=== PATIENT | male | born 1975 | race African-American/Black ===

== ENCOUNTER 2018-08-21 02:24 | Emergency (ER) | payer OTHER ==
[2018-08-21] MEDS ORDERED: KETOROLAC TROMETHAMINE INJ/PF 30 MG/1 ML SDV IV ONE (03:27)
[2018-08-21] MEDS ORDERED: NORMAL SALINE 1000 ML 1,000 ML IV ONE (03:27)
--- NOTE | 2018-08-21 03:32 | ER Document Report ---
ED General - General Chief Complaint: Sickle Cell Crisis Stated Complaint: ARM AND LEG PAIN Time Seen by Provider: 08/21/18 03:20 TRAVEL OUTSIDE OF THE [place] IN LAST 30 DAYS: No - HPI Notes: Patient presents to the emergency department for evaluation of arm and leg pain. He has a history of sickle cell disease. He states he believes that the problem. He was moving furniture, he is moving out of the area. He denies any chest pain or shortness of breath. No fevers or chills. He is taking his medic ations as prescribed. He follows at [place]. Scratch his pain as an aching, it waxes and wanes in intensity. He took some Mobic earlier without any significant relief. Patient also notes he took some Excedrin PM at around 11 PM tonight. - Related Data Allergies/Adverse Reactions: morphine Allergy (Verified 08/21/18 04:22) Home Medications: Folic acid, hydroxyurea, Mobic Past Medical History - General Information source: Patient - Social History Smoking Status: Never Smoker Frequency of alcohol use: None Drug Abuse: None Family History: Other - Brain aneurysms in father - Medical History Medical History: Other - Sickle cell anemia Neurological Medical History: Reports: Other - History of encephalitis Review of Systems - Review of Systems Constitutional: No symptoms reported EENT: No symptoms reported Cardiovascular: No symptoms reported Respiratory: No symptoms reported Gastrointestinal: No symptoms reported Genitourinary: No symptoms reported Musculoskeletal: See HPI Skin: No symptoms reported Neurological/Psychological: No symptoms reported Physical Exam - Vital signs Vitals: Temp Pulse Resp BP Pulse Ox 98.4 F 77 16 152/112 H 97 08/21/18 02:34 08/21/18 02:34 08/21/18 02:34 08/21/18 02:34 08/21/18 02:34 - Notes Notes: This is a pleasant 43-year-old male, appears his stated age, no acute distress. He seems slightly restless, but intermittently drowsy. GCS is 456. Vital signs reviewed, please refer to chart. Head is normocephalic, atraumatic. Pupils equal round, reactive to light. Neck is supple without meningismus. Heart is regular rate and rhythm. Lungs are clear to auscultation bilaterally. Abdomen is soft, nontender, normoactive bowel sounds throughout. Extremities without cyanosis, clubbing. Posterior calves are nontender. Peripheral pulses are equal. Skin is warm and dry. Patient is awake, alert, neurological exam is nonfocal. Examination of the upper extremities yields 2+ radial pulses bilaterally. Sensation is intact, capillary refill is brisk. Mild tenderness noted to the forearms and biceps areas. Full range of motion of the shoulder, elbow, wrist, fingers, thumb. Course - Re-evaluation Re-evalutation: 08/21/18 03:31 Patient presents to the emergency department for evaluation. He had CBC, CMP, reticulocyte count ordered. He did specifically request IV fluids. He was given IV fluids, Toradol. I did explain to the patient my concern about the fact that he drove himself here, did take Tylenol PM several hours ago. We will attempt conservative therapy, continue to follow. 08/21/18 05:29 Patient did ask for stronger pain medicine, but he remained very sleepy. He did not want to wake his to come me his ride. 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 We discussed this. His laboratory investigations are largely unremarkable. He has a normal reticulocyte count. His hemoglobin is only very mildly decreased. We will send him home with 2 Percocet. He is to follow-up with primary care and hematology. He is to return to the ED with worsening or new concerning symptoms of any sort. - Vital Signs Vital signs: Temp Pulse Resp BP Pulse Ox 98.4 F 77 16 152/112 H 97 08/21/18 02:34 08/21/18 02:34 08/21/18 02:34 08/21/18 02:34 08/21/18 02:34 - Laboratory Result Diagrams: 08/21/18 03:50 08/21/18 03:50 Laboratory results interpreted by me: 08/21/18 03:50 RBC 3.82 L Hgb 11.5 L Hct 34.4 L RDW 17.5 H Plt Count 131 L Discharge - Discharge Clinical Impression: Sickle cell anemia with pain Condition: Stable Disposition: HOME, SELF-CARE Instructions: Sickle Cell Crisis ([facility]) Additional Instructions: Rest and stay well-hydrated. Continue your home medications as prescribed. Follow-up with your project intern this week. Return to the ED with worsening or new concerning symptoms.
[2018-08-21 04:12] LABS: ABSOLUTE EOSINOPHILS # (AUTO) 0.1 10^3/uL (0.0-0.6); ABSOLUTE LYMPHOCYTES (AUTO) 1.4 10^3/uL (0.5-4.7); ABSOLUTE MONOCYTES (AUTO) 0.6 10^3/uL (0.1-1.4); ABSOLUTE NEUT (AUTO) 4.5 10^3/uL (1.7-8.2); BASOPHILS % (AUTO) 0.2 % (0-2); EOSINOPHILS % (AUTO) 0.8 % (0-6); HEMATOCRIT 34.4 % (37.9-51.0); HEMOGLOBIN 11.5 g/dL (13.5-17.0); LYMPHOCYTES % (AUTO) 20.8 % (13-45); MEAN CORPUSCULAR HGB CONC 33.3 g/dL (32.0-36.0); MEAN CORPUSCULAR VOLUME 90 fl (80-97); PLATELET COUNT 131 10^3/uL (150-450); RED BLOOD COUNT 3.82 10^6/uL (4.35-5.55); RED CELL DISTRIBUTION WIDTH 17.5 % (11.5-14.0); SEGMENTED NEUTROPHILS % (AUTO) 69.2 % (42-78); TOTAL CELLS COUNTED % (AUTO) 100 %; WHITE BLOOD COUNT 6.6 10^3/uL (4.0-10.5)
[2018-08-21 04:21] LABS: ALANINE AMINOTRANSFERASE 37 U/L (21-72); ALBUMIN 3.8 g/dL (3.5-5.0); ALKALINE PHOSPHATASE 61 U/L (38-126); ANION GAP 6 (5-19); ASPARTATE AMINO TRANSFERASE 30 U/L (17-59); BILIRUBIN,DIRECT 0.3 mg/dL (0.0-0.4); BILIRUBIN,TOTAL 0.4 mg/dL (0.2-1.3); BLOOD UREA NITROGEN 11 mg/dL (7-20); CALCIUM 8.6 mg/dL (8.4-10.2); CARBON DIOXIDE 27 mmol/L (22-30); CHLORIDE 106 mmol/L (98-107); GLUCOSE 90 mg/dL (75-110); POTASSIUM 4.2 mmol/L (3.6-5.0); SODIUM 138.9 mmol/L (137-145); TOTAL PROTEIN 6.4 g/dL (6.3-8.2)
[2018-08-21] MEDS ORDERED: OXYCODONE-ACETAMINOPHEN 5-325 MG TABLET PO ONE (05:30)
[2018-08-21 05:34] LABS: APPEARANCE,URINE CLEAR; BILIRUBIN,URINE NEGATIVE (NEGATIVE); COLOR,URINE YELLOW; GLUCOSE, URINE NEGATIVE (NEGATIVE); KETONES,URINE NEGATIVE (NEGATIVE); LEUKOCYTE ESTERASE,URINE NEGATIVE (NEGATIVE); NITRITE,URINE NEGATIVE (NEGATIVE); PROTEIN,URINE NEGATIVE (NEGATIVE); URINE SPECIFIC GRAVITY 1.006; UROBILINOGEN,URINE NEGATIVE mg/dL (<2.0)
[2018-08-21 05:42] LABS: ADD MANUAL MICROSCOPIC YES; RBC,URINE NONE SEEN /HPF; WBC,URINE NONE SEEN /HPF
[2018-08-21 05:53] LABS: URINE AMPHETAMINES SCREEN NEGATIVE; URINE BARBITURATES SCREEN NEGATIVE; URINE BENZODIAZEPINES SCREEN NEGATIVE; URINE COCAINE SCREEN NEGATIVE; URINE MARIJUANA (THC) SCREEN NEGATIVE; URINE METHADONE SCREEN NEGATIVE; URINE PHENCYCLIDINE SCREEN NEGATIVE
[2018-08-21 05:54] VITALS: BP 148/87
== END 2018-08-21 06:06 | disposition home or self-care (01) ==
LOC: ER 02:24
DX: D57.00 Hb-SS disease with crisis, unspecified (principal); Z88.6 Allergy status to analgesic agent
CPT/HCPCS: 99284; 96361; 96374; 36415; 85025; 85045; 80053; 81001; 80307; J1885; J7030